=== PATIENT | male | born 1970 | race Caucasian/White ===

== ENCOUNTER 2024-03-04 13:38 | Emergency (ER) | payer MEDICARE ==
[~2024-03-04] VITALS: Ht 172.7 cm; Wt 75.0 kg
[2024-03-04 14:27] VITALS: O2SAT 98
[2024-03-04] MEDS: BUPRENORPHINE 8MG SL TABLET SL ONE (17:55)
[2024-03-04] MEDS ORDERED: BUPR1FIL5 SL (18:11)
[2024-03-04 18:35] VITALS: BP 138/82; PULSE 88; RESP 18; TEMP 36.83628; O2SAT 98
== END 2024-03-04 18:43 | disposition home or self-care (01) ==
LOC: ER 13:38
DX: Z51.81 Encounter for therapeutic drug level monitoring (principal); G47.00 Insomnia, unspecified; F41.0 Panic disorder [episodic paroxysmal anxiety]
CPT/HCPCS: 99283; Z7610